=== PATIENT | male | born 1960 ===

== ENCOUNTER 2017-01-24 03:22 | Emergency (ER) | payer OTHER ==
[2017-01-24 03:33] VITALS: TEMP 99
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
[2017-01-24 05:23] VITALS: RESP 16
[2017-01-24 05:34] VITALS: BP 158/68; PULSE 67; O2SAT 99
== END 2017-01-24 05:39 | disposition home or self-care (01) ==
LOC: H.ER 03:22
DX: R51 Headache (principal); E11.9 Type 2 diabetes mellitus without complications; F17.200 Nicotine dependence, unspecified, uncomplicated; G89.29 Other chronic pain; I10 Essential (primary) hypertension